=== PATIENT | male | born 1960 | race Hispanic/Latino ===

== ENCOUNTER 2018-06-01 11:24 | Inpatient (IN) | payer OTHER ==
[~2018-06-01] VITALS: Ht 167.6 cm; Wt 74.0 kg
[2018-06-01] MEDS ORDERED: MORPHINE SULFATE 4 MG/1ML SYG ONE ×3 (12:04→13:26)
[2018-06-01] MEDS ORDERED: SODIUM CHLORIDE 0.9% 1000ML 1,000 ML IV ONE (12:04)
[2018-06-01] MEDS ORDERED: FAMOTIDINE/PF 20 MG/2 ML VIAL IV ONE (12:05)
[2018-06-01 12:15] LABS: BASOPHILS % (AUTO) 0.5 % (0.0-5.0); LYMPHOCYTES % (AUTO) 8.2 % (21.0-51.0); MEAN CORPUSCULAR HEMOGLOBIN 32.4 pg (27.0-33.0); MONOCYTES % (AUTO) 5.9 % (3.0-13.0); NEUTROPHILS % (AUTO) 85.4 % (40.0-77.0); PLATELET COUNT (AUTO) 235 K/uL (130-400); RED BLOOD CELL COUNT(AUTO) 4.84 MIL/uL (4.50-6.20); RED CELL DISTRIBUTION WIDTH 14.2 % (11.0-15.5); WHITE BLOOD COUNT (AUTO) 10.8 K/uL (4.8-10.8)
[2018-06-01 12:27] LABS: CREATININE 1.1 mg/dL (0.5-1.5); POTASSIUM 3.9 mmol/L (3.5-5.1)
[2018-06-01 12:31] LABS: BILIRUBIN,TOTAL 1.2 mg/dL (0.2-1.0); TOTAL PROTEIN, SERUM 8.9 g/dL (6.0-8.3)
[2018-06-01] MEDS ORDERED: ASPIRIN 325 MG TABLET ONE (12:37)
[2018-06-01] MEDS ORDERED: LIDOCAINE HCL 2% VISCOUS 15 ML UDCUP ONE (12:37)
[2018-06-01] MEDS ORDERED: MAGNESIUM HYDROXIDE 30 ML/UDCUP ONE (12:37)
[2018-06-01] MEDS ORDERED: HYDRALAZINE HCL 25 MG TABLET ONE (13:25)
[2018-06-01] MEDS ORDERED: ONDANSETRON HCL 4 MG/2 ML VIAL ONE (13:35)
[2018-06-01] MEDS: SODIUM CHLORIDE 0.9% 1000ML 1,000 ML IV SCH ×2 (14:30→18:59)
[2018-06-01 15:15] VITALS: BP 149/78
[2018-06-01] MEDS ORDERED: ONDANSETRON HCL 4 MG/2 ML VIAL IV PRN (16:15)
[2018-06-01] MEDS ORDERED: HYDRALAZINE HCL 20 MG/ML VIAL IV PRN (16:15)
[2018-06-01] MEDS ORDERED: MORPHINE SULFATE 2 MG/ML 1ML SYG IV PRN (16:15)
[2018-06-01 17:52] LABS: TROPONIN I 0.22 ng/mL (0.00-0.06)
[2018-06-01] MEDS: ACETAMINOPHEN 325 MG TAB PO PRN ×2 (18:54→21:22)
[2018-06-01] MEDS ORDERED: IOHEXOL-350 75 ML VIAL IV ONE (18:57)
[2018-06-01] MEDS: NITROGLYCERIN 1GM/1 INCH PACKET TD SCH (18:59)
[2018-06-01 20:00] VITALS: BP 135/72
[2018-06-01] MEDS: OSELTAMIVIR PHOSPHATE 75 MG CAP PO SCH (21:11)
[2018-06-01] MEDS: METOPROLOL TARTRATE 25 MG TAB PO SCH (21:11)
[2018-06-01] MEDS: FAMOTIDINE/PF 20 MG/2 ML VIAL IV SCH (21:11)
[2018-06-01] MEDS: ZOSYN 3.375GM+NS 50ML 50 ML IV SCH (21:11)
[2018-06-02] VITALS: BP 137/74
[2018-06-02] MEDS: NITROGLYCERIN 1GM/1 INCH PACKET TD SCH (02:04)
[2018-06-02] MEDS: SODIUM CHLORIDE 0.9% 1000ML 1,000 ML IV SCH ×3 (03:50→12:58)
[2018-06-02 04:00] VITALS: BP 135/52
[2018-06-02] MEDS: ZOSYN 3.375GM+NS 50ML 50 ML IV SCH ×2 (05:21→12:48)
[2018-06-02 05:54] LABS: T4 (THYROXINE) 5.9 mcg/dL (4.7-13.3); THYROID STIMULATING HORMONE 3.59 uIU/mL (0.36-3.74)
[2018-06-02] MEDS ORDERED: LISI40TA4 PO (07:45)
[2018-06-02] MEDS ORDERED: LEVO125T11 PO (07:45)
[2018-06-02] MEDS ORDERED: ATOR40TA69 PO (07:45)
[2018-06-02 08:41] VITALS: BP 118/76
[2018-06-02] MEDS ORDERED: ASPIRIN 81 MG EC TAB PO SCH (09:00)
[2018-06-02] MEDS ORDERED: NITROGLYCERIN 1GM/1 INCH PACKET TD SCH (09:39)
[2018-06-02] MEDS: METOPROLOL TARTRATE 25 MG TAB PO SCH (10:19)
[2018-06-02] MEDS: OSELTAMIVIR PHOSPHATE 75 MG CAP PO SCH (10:19)
[2018-06-02] MEDS: FAMOTIDINE/PF 20 MG/2 ML VIAL IV SCH (10:19)
[2018-06-02] MEDS: REGADENOSON 0.4 MG/5 ML PF SYG IVP SCH ×2 (12:15→15:57)
[2018-06-02] MEDS: ACETAMINOPHEN 325 MG TAB PO PRN ×2 (12:56→18:13)
[2018-06-02] MEDS ORDERED: ASPI-555 PO (18:57)
[2018-06-02] MEDS ORDERED: PANT40SU PO (19:00)
[2018-06-03 06:15] LABS: HEPATITIS A ANTIBODY IGM Negative (Negative); HEPATITIS B CORE IGM Negative (Negative); HEPATITIS Bs ANTIGEN SCREEN P Negative (Negative)
[2018-06-03] MEDS ORDERED: ENOXAPARIN SODIUM 40 MG/0.4 ML SYRINGE SQ SCH (09:00)
== END 2018-06-02 20:30 | disposition home or self-care (01) | DRG 392 ==
LOC: EDH 11:24 → EDHIP 11:25 → 3CH 15:07
PROVIDERS: ADMIT Hospitalist; ATTEND Hospitalist
DX: R10.13 Epigastric pain (principal); K76.0 Fatty (change of) liver, not elsewhere classified; E03.9 Hypothyroidism, unspecified; E78.5 Hyperlipidemia, unspecified; I10 Essential (primary) hypertension; Z91.19 Patient's noncompliance with other medical treatment and regimen; Z83.3 Family history of diabetes mellitus
CPT/HCPCS: 36415; 71045; 74177; 76705; 78452; 80053; 80061; 80074; 82550; 82948; 83605; 83690; 83874; 84436; 84443; 84484; 85025; 87040; 87486; 87581; 87633; 87798; 87804; 93005; 93017; 93306; 96374; 99291; A9500; G0378; J2270; J2405; J2543; J2785; J3490; J7030; Q9967